=== PATIENT | female | born 1980 | race Caucasian/White ===

== ENCOUNTER 2022-04-13 09:19 | Outpatient (CLI) | payer OTHER, SELFPAY ==
[2022-04-13 11:49] LABS: TSH With Reflex to FT4* 0.912 uIU/mL (0.270-4.200)
== END 2022-04-13 09:20 | disposition home or self-care (01) ==
LOC: NFLDREF 09:19
PROVIDERS: PCP Family Medicine; Visit Provider Obstetrics & Gynecology
DX: Z01.419 Encounter for gynecological examination (general) (routine) without abnormal findings (principal); Z83.49 Family history of other endocrine, nutritional and metabolic diseases
CPT/HCPCS: 84443

== ENCOUNTER 2023-07-19 15:05 | Outpatient (CLI) | payer BC, SELFPAY ==
--- NOTE | 2023-07-19 15:20 | MM_ITS ---
Patient: QUITA ELI Facility:?[facility] Patient ID:?[id number] Site Patient ID:?[id number]. Site :?[id number] Study:?XRay-Breast Bilateral 3D W/CAD-07/19/2023 3:50:15 PM Ordering Physician:Sam Final Report: BILATERAL SCREENING MAMMOGRAM WITH COMPUTER-AIDED DETECTION AND TOMOSYNTHESIS TECHNIQUE: CC and MLO views were obtained. These mammographic images have been obtained using full-field digital technique. These mammographic images were interpreted with the benefit of computer-aided detection. Breast Tomosynthesis was used in this interpretation. COMPARISON FILM: Baseline. 12/03/15(RT), 08/24/14(RT). FINDINGS: The breasts are heterogeneously dense, which may obscure small masses. IMPRESSION: There is no radiographic evidence for malignancy. ASSESSMENT: BI-RADS Category 2: Benign RECOMMENDATION: Routine screening mammogram in 1 year. A lay language report of this examination will be provided to the patient. Toño Buckley M.D. Diagnostic Radiologist [email or web address] DSM/sp R& Transcribed: 5:23 p.m. SP/Dictated by: Toño Buckley MD @ 07/20/2023 8:52:00 AM Signed by:?Toño Buckley MD @07/21/2023 5:28:02 AM (Electronic Signature)
== END 2023-07-19 15:06 | disposition home or self-care (01) ==
LOC: MAMMO 15:06
PROVIDERS: PCP Family Medicine; Visit Provider Obstetrics & Gynecology
DX: Z12.31 Encounter for screening mammogram for malignant neoplasm of breast (principal); R92.2 Inconclusive mammogram
CPT/HCPCS: 77063; 77067

== ENCOUNTER 2024-04-21 09:03 | Outpatient (CLI) | payer BC, SELFPAY | END 2024-04-21 09:04 | disposition home or self-care (01) | PROVIDERS: PCP Family Medicine; Visit Provider Obstetrics & Gynecology | DX: R53.83 Other fatigue (principal); R63.5 Abnormal weight gain; R23.2 Flushing | CPT/HCPCS: 83001; 84439; 84443 ==

== ENCOUNTER 2024-04-24 17:26 | Outpatient (CLI) | payer BC, SELFPAY ==
--- NOTE | 2024-04-24 17:30 | CRLHL7_ITS ---
For Patients: As a result of the Century Cures Act, medical imaging exams and procedure reports are released immediately into your electronic medical record. You may view this report before your referring provider. If you have questions, please contact your health care provider. CLINICAL HISTORY: pelvic pain TECHNIQUE: 2D aquino scale ultrasound. In addition color Doppler and spectral Doppler analysis was performed of the pelvis using a transabdominal and transvaginal approach. FINDINGS: Uterus measures 7.5 x 4.0 x 4.2 cm. No uterine fibroid. Normal position of an IUD within the endometrial canal. Endometrial stripe is not thickened. The right ovary measures 2.8 x 1.6 x 1.7 cm in size and the left ovary is not visualized. The right ovary demonstrates normal arterial and venous blood flow on color Doppler and spectral Doppler analysis. There are no suspicious fluid collections within the cul-de-sac. IMPRESSION: Normal right ovary. Left ovary not visualized. No excess pelvic free fluid or adnexal mass. Dictated by Toño Buckley MD @ 04/25/2024 11:26:08 AM (Electronically Signed)
== END 2024-04-24 17:27 | disposition home or self-care (01) ==
LOC: US 17:26
PROVIDERS: PCP Family Medicine; Visit Provider Obstetrics & Gynecology
DX: R10.2 Pelvic and perineal pain (principal); R53.83 Other fatigue; R63.5 Abnormal weight gain; R23.2 Flushing
CPT/HCPCS: 76830; 76856; 93976

== ENCOUNTER 2024-05-05 14:13 | Outpatient (CLI) | payer BC, OTHER, SELFPAY | END 2024-05-05 14:14 | disposition home or self-care (01) | PROVIDERS: PCP Family Medicine; Visit Provider Family Medicine | DX: R79.89 Other specified abnormal findings of blood chemistry (principal); M79.89 Other specified soft tissue disorders; R53.83 Other fatigue | CPT/HCPCS: 84439; 84443; 86038; 86376; 86800 ==

== ENCOUNTER 2024-07-21 13:25 | Outpatient (CLI) | payer OTHER, SELFPAY ==
--- NOTE | 2024-07-21 13:45 | CRLHL7_ITS ---
For Patients: As a result of the Century Cures Act, medical imaging exams and procedure reports are released immediately into your electronic medical record. You may view this report before your referring provider. If you have questions, please contact your health care provider. INDICATION: Low TSH level COMPARISON: none TECHNIQUE: Blancas scale and color Doppler images were acquired of the thyroid gland. FINDINGS: The thyroid gland demonstrates heterogeneous echogenicity and has a smooth outer contour. Hypoechoic nodule left thyroid lobe inferior pole measures 6 x 4 x 6 millimeters, TR 4. The right lobe measures 5.3 x 1.7 x 1.7 cm and the left lobe measures 5.0 x 1.5 x 1.6 cm in size. The color Doppler images demonstrate normal vascularity. There is no evidence of cervical lymphadenopathy or parathyroid mass. IMPRESSION: Mildly heterogeneous thyroid gland with normal vascularity. No suspicious thyroid nodule. Dictated by Toño Buckley MD @ 07/23/2024 4:43:34 PM (Electronically Signed)
== END 2024-07-21 13:26 | disposition home or self-care (01) ==
LOC: US 13:26
PROVIDERS: PCP Family Medicine; Visit Provider Internal Medicine Endocrinology, Diabetes & Metabolism
DX: R79.89 Other specified abnormal findings of blood chemistry (principal)
CPT/HCPCS: 76536

== ENCOUNTER 2024-08-10 15:31 | Outpatient (CLI) | payer OTHER, SELFPAY ==
--- NOTE | 2024-08-10 15:40 | CRLHL7_ITS ---
For Patients: As a result of the Century Cures Act, medical imaging exams and procedure reports are released immediately into your electronic medical record. You may view this report before your referring provider. If you have questions, please contact your health care provider. BILATERAL SCREENING MAMMOGRAM WITH COMPUTER-AIDED DETECTION AND TOMOSYNTHESIS TECHNIQUE: CC and MLO views were obtained. These mammographic images have been obtained using full-field digital technique. These mammographic images were interpreted with the benefit of computer-aided detection. Breast Tomosynthesis was used in this interpretation. COMPARISON FILM: 07/19/23, 12/03/15(RT ONLY), 08/24/14(RT ONLY). FINDINGS: The breasts are heterogeneously dense, which may obscure small masses. IMPRESSION: There is no radiographic evidence for malignancy. ASSESSMENT: BI-RADS Category 2: Benign RECOMMENDATION: Routine screening mammogram in 1 year. A lay language report of this examination will be provided to the patient. Toño Buckley M.D. Diagnostic Radiologist [email or web address] SP/Dictated by: Toño Buckley MD @ 08/11/2024 12:47:00 PM (Electronically Signed)
== END 2024-08-10 15:32 | disposition home or self-care (01) ==
LOC: MAMMO 15:32
PROVIDERS: PCP Family Medicine; Visit Provider Family Medicine
DX: Z12.31 Encounter for screening mammogram for malignant neoplasm of breast (principal); R92.333 Mammographic heterogeneous density, bilateral breasts
CPT/HCPCS: 77063; 77067

== ENCOUNTER 2024-08-21 08:09 | Outpatient (CLI) | payer OTHER, SELFPAY ==
[2024-08-21 09:52] LABS: Free T4 Free Thyroxine* 2.01 ng/dL (0.70-1.85)
[2024-08-21 10:09] LABS: Thyroid Stimulating Hormone* < 0.015 uIU/mL (0.270-4.20)
[2024-08-22 07:37] LABS: Free T3 8.3 pg/mL (2.5-4.3)
== END 2024-08-21 08:10 | disposition home or self-care (01) ==
LOC: NPINS 08:10
PROVIDERS: PCP Family Medicine; Visit Provider Internal Medicine Endocrinology, Diabetes & Metabolism
DX: R79.89 Other specified abnormal findings of blood chemistry (principal)
CPT/HCPCS: 84439; 84443; 84481

== ENCOUNTER 2024-11-01 09:18 | Outpatient (CLI) | payer OTHER, SELFPAY ==
[2024-11-01 11:11] LABS: Alkaline Phosphatase* 72 U/L (40-150)
[2024-11-01 11:32] LABS: Free T4 Free Thyroxine* 1.59 ng/dL (0.70-1.85)
[2024-11-01 11:46] LABS: Thyroid Stimulating Hormone* < 0.015 uIU/mL (0.270-4.20)
[2024-11-03 03:55] LABS: Free T3 5.2 pg/mL (2.5-4.3)
== END 2024-11-01 09:19 | disposition home or self-care (01) ==
LOC: NPINS 09:19
PROVIDERS: PCP Family Medicine; Visit Provider Internal Medicine Endocrinology, Diabetes & Metabolism
DX: E05.00 Thyrotoxicosis with diffuse goiter without thyrotoxic crisis or storm (principal)
CPT/HCPCS: 84075; 84439; 84443; 84481

== ENCOUNTER 2025-01-15 16:12 | Outpatient (CLI) | payer OTHER, SELFPAY ==
[2025-01-15 19:18] LABS: Alkaline Phosphatase* 78 U/L (40-150)
[2025-01-15 19:36] LABS: Free T4 Free Thyroxine* 0.93 ng/dL (0.70-1.85)
[2025-01-16 19:39] LABS: Free T3 3.1 pg/mL (2.5-4.3)
== END 2025-01-15 16:13 | disposition home or self-care (01) ==
LOC: NPINS 16:15
PROVIDERS: PCP Family Medicine; Visit Provider Internal Medicine Endocrinology, Diabetes & Metabolism
DX: E05.00 Thyrotoxicosis with diffuse goiter without thyrotoxic crisis or storm (principal)
CPT/HCPCS: 84075; 84439; 84443; 84481

== ENCOUNTER 2025-04-23 15:53 | Outpatient (CLI) | payer OTHER, SELFPAY ==
[2025-04-23 19:03] LABS: Alkaline Phosphatase* 81 U/L (40-150)
[2025-04-23 19:21] LABS: Free T4 Free Thyroxine* 1.04 ng/dL (0.70-1.85)
== END 2025-04-23 15:54 | disposition home or self-care (01) ==
LOC: NPINS 15:54
PROVIDERS: PCP Family Medicine; Visit Provider Internal Medicine Endocrinology, Diabetes & Metabolism
DX: E05.00 Thyrotoxicosis with diffuse goiter without thyrotoxic crisis or storm (principal)
CPT/HCPCS: 84075; 84439; 84443; 84480

== ENCOUNTER 2025-05-03 14:47 | Outpatient (CLI) | payer OTHER, SELFPAY ==
--- NOTE | 2025-05-03 15:00 | CRLHL7_ITS ---
For Patients: As a result of the Century Cures Act, medical imaging exams and procedure reports are released immediately into your electronic medical record. You may view this report before your referring provider. If you have questions, please contact your health care provider. CLINICAL HISTORY: Missing IUD strings COMPARISON: 04/24/2024 TECHNIQUE: 2D aquino-scale and color Doppler images were acquired of the pelvis using a transvaginal approach. FINDINGS: Uterus measures 8.5 x 3.5 x 3.8 cm. No uterine fibroid. IUD is present in good position within the endometrial canal. The left ovary is not visualized due to bowel gas and the right ovary measures 2.8 x 1.5 x 2.0 cm. The right ovary demonstrates normal arterial and venous blood flow on color Doppler analysis. There are no suspicious fluid collections within the cul-de-sac. IMPRESSION: Normal position of an IUD within the endometrial canal. Dictated by Toño Buckley MD @ 05/03/2025 3:58:46 PM (Electronically Signed)
== END 2025-05-03 14:48 | disposition home or self-care (01) ==
LOC: US 14:48
PROVIDERS: PCP Family Medicine; Visit Provider Obstetrics & Gynecology
DX: T83.32XA Displacement of intrauterine contraceptive device, initial encounter (principal)
CPT/HCPCS: 76830